=== PATIENT | male | born 1950 | race Caucasian/White ===

== ENCOUNTER 2016-07-30 09:16 | Emergency (ER) | payer BC ==
[2016-07-30 09:43] VITALS: BP 125/79
--- NOTE | 2016-07-30 10:26 | UC ---
Respiratory Complaint HPI - HPI Summary HPI Summary: 1 week of cough and sinus congestion. " made me come in." No fever. No vomiting or diarrhea. Harsh, wheezy cough especially when flat in bed. Helped by OTC meds. Clear sinus drainage and congestion. No ST or earache. - History of Current Complaint Chief Complaint: UCRespiratory Stated Complaint: CONGESTION Time Seen by Provider: 07/30/16 10:11 Hx Obtained From: Patient Onset/Duration: Gradual Onset, Lasting Weeks - 1 Severity Initially: Mild Severity Currently: Mild Character: Cough: Productive Aggravating Factors: Deep Breaths, Recumbent Position Alleviating Factors: OTC Meds Associated Signs And Symptoms: Positive: Chills, Wheezing - with cough, URI. Negative: Fever, Pleuritic Chest Pain, Hemoptysis, Dizziness - Risk Factors Pulmonary Embolism Risk Factors: Negative Cardiac Risk Factors: Negative Pseudomonas Risk Factors: Negative Tuberculosis Risk Factors: Negative - Allergies/Home Medications Allergies/Adverse Reactions: Allergies Allergy/AdvReac Type Severity Reaction Status Date / Time No Known Allergies Allergy Verified 07/30/16 09:36 Home Medications: Home Medications Lisinopril TAB* [Prinivil TAB*] 10 mg PO DAILY 07/30/16 [History Confirmed 07/30] Multiple Vitamin [Multivitamins] 1 cap PO DAILY 07/30/16 [History Confirmed ] Simvastatin TAB(NF) [Zocor(NF)] 10 mg PO DAILY 07/30/16 [History Confirmed 07/30] PMH/Surg Hx/FS Hx/Imm Hx Cardiovascular History Of: Reports: Hypertension - Surgical History Surgical History: Yes Surgery Procedure, Year, and Place: L TKA. hernia - Family History Known Family History: Positive: Hypertension - Social History Occupation: Employed Full-time - overhauler bus truck Lives: With Family Alcohol Use: None Substance Use Type: None Smoking Status (MU): Former Smoker When Did the Patient Quit Smoking/Using Tobacco: 25 years ago - Immunization History Most Recent Influenza Vaccination: 2017 Review of Systems Constitutional: Negative Skin: Negative Eyes: Negative ENT: Nasal Discharge Respiratory: Cough Cardiovascular: Negative Gastrointestinal: Negative Genitourinary: Negative Motor: Negative Neurovascular: Negative Musculoskeletal: Negative Neurological: Negative Psychological: Negative All Other Systems Reviewed And Are Negative: Yes Physical Exam Triage Information Reviewed: Yes Appearance: Well-Appearing, No Pain Distress, Well-Nourished Vital Signs: Initial Vital Signs Temp 97.2 F 07/30/16 09:37 Pulse 69 07/30/16 09:37 Resp 20 07/30/16 09:37 BP 125/79 07/30/16 09:37 Pulse Ox 96 07/30/16 09:37 Vital Signs Reviewed: Yes Eye Exam: Normal Eyes: Positive: Conjunctiva Clear ENT: Positive: Hearing grossly normal, Pharynx normal, Nasal congestion, Nasal drainage, TMs normal. Negative: Tonsillar swelling, Tonsillar exudate, Trismus , Muffled/hoarse voice Neck exam: Normal Neck: Positive: Supple Respiratory Exam: Normal Respiratory: Positive: Lungs clear, Normal breath sounds, No respiratory distress, No accessory muscle use Cardiovascular Exam: Normal Abdomen Description: Positive: Soft. Negative: CVA Tenderness (R), CVA Tenderness (L), Distended, Guarding Musculoskeletal Exam: Normal Neurological Exam: Normal Psychological Exam: Normal Skin Exam: Normal UC Diagnostic Evaluation - Laboratory O2 Sat by Pulse Oximetry: 96 Respiratory Course/Dx - Differential Dx/Diagnosis Differential Diagnosis/HQI/PQRI: Lower Resp Infection, Sinusitis Provider Diagnoses: URI Discharge - Discharge Plan Condition: Stable Disposition: HOME Prescriptions: Albuterol HFA INHALER* [Ventolin HFA Inhaler*] 1 - 2 puff INH Q4H PRN #1 mdi PRN Reason: cough, wheezing Azithromycin TAB* [Zithromax TAB (Z-GABRIELE) 250 mg #6 tabs] 2 tab PO .TODAY, THEN 1 DAILY #1 gabriele Patient Education Materials: Upper Respiratory Infection (ED) Referrals: Shayy HARRISON,Kena Alfaro [Primary Care Provider] -
== END 2016-07-30 10:28 | disposition home or self-care (01) ==
LOC: UCCORT 09:16
DX: J06.9 Acute upper respiratory infection, unspecified (principal); Z87.891 Personal history of nicotine dependence
CPT/HCPCS: 99212; G0463

== ENCOUNTER 2017-03-31 16:21 | Emergency (ER) | payer BC ==
[2017-03-31 16:42] VITALS: BP 130/72
--- NOTE | 2017-03-31 18:11 | UC ---
Skin Complaint HPI - HPI Summary HPI Summary: 66 yo male with painless pea sized boil left axilla x 3 days slowly growing no overlying redness no f/c no Hx MRSA - History of Current Complaint Chief Complaint: UCSkin Time Seen by Provider: 03/31/17 17:38 Stated Complaint: LEFT UNDERARM BOIL Hx Obtained From: Patient Onset/Duration: Gradual Onset, Lasting Days Timing: Constant Onset Severity: Mild Current Severity: Mild Pain Intensity: 0 - hurts if he squeezes it Pain Scale Used: 0-10 Numeric Location: Other - left axilla Character: Redness, Raised, Painful Aggravating: Touch Alleviating: Nothing Associated Signs & Symptoms: Positive: Tenderness - Allergy/Home Medications Allergies/Adverse Reactions: Allergies Allergy/AdvReac Type Severity Reaction Status Date / Time No Known Allergies Allergy Verified 03/31/17 16:38 Review of Systems Constitutional: Negative Skin: Negative Eyes: Negative ENT: Negative Respiratory: Negative Cardiovascular: Negative Gastrointestinal: Negative Genitourinary: Negative Motor: Negative Neurovascular: Negative Musculoskeletal: Negative Neurological: Negative Psychological: Negative Is Patient Immunocompromised?: No All Other Systems Reviewed And Are Negative: Yes PMH/Surg Hx/FS Hx/Imm Hx Previously Healthy: Yes - Surgical History Surgical History: Yes Surgery Procedure, Year, and Place: L TKA. hernia repair - Family History Known Family History: Positive: Hypertension - Social History Alcohol Use: None Substance Use Type: None Smoking Status (MU): Former Smoker When Did the Patient Quit Smoking/Using Tobacco: 25 years ago - Immunization History Most Recent Influenza Vaccination: 2017 Physical Exam Triage Information Reviewed: Yes Appearance: Well-Appearing, No Pain Distress, Well-Nourished Vital Signs: Initial Vital Signs Temp 98.2 F 03/31/17 16:39 Pulse 66 03/31/17 16:39 Resp 16 03/31/17 16:39 BP 130/72 03/31/17 16:39 Pulse Ox 97 03/31/17 16:39 Vital Signs Reviewed: Yes Eyes: Positive: Conjunctiva Clear ENT: Positive: Hearing grossly normal. Negative: Nasal congestion, Nasal drainage, Trismus, Muffled/hoarse voice Neck: Positive: Supple, Nontender Respiratory: Positive: Lungs clear, Normal breath sounds, No respiratory distress, No accessory muscle use Cardiovascular: Positive: RRR, No Murmur Musculoskeletal: Positive: ROM Intact, No Edema Neurological: Positive: Alert Psychological Exam: Normal Skin Exam: Other - pea sized boil left axilla Course/Dx - Diagnoses Provider Diagnoses: left axillary boil (small). no overlying cellulitis Discharge - Discharge Plan Condition: Stable Disposition: HOME Prescriptions: Sulfamethox/Trimethoprim DS* [Bactrim DS 800/160 TAB*] 1 tab PO BID #14 tab Patient Education Materials: Abscess (ED) Referrals: Shayy HARRISON,Kena Alfaro [Primary Care Provider] - If Needed Additional Instructions: I suspect this will resolve with oral antibiotics recheck for worsening symptom recheck if not better in about 4 days warm/soapy compresses for 5-10 minutes 4x day until better
== END 2017-03-31 18:09 | disposition home or self-care (01) ==
LOC: UCCORT 16:21
DX: L02.422 Furuncle of left axilla (principal); Z87.891 Personal history of nicotine dependence
CPT/HCPCS: 99212; G0463

== ENCOUNTER 2018-11-15 16:42 | Emergency (ER) | payer BC ==
[2018-11-15 17:14] VITALS: BP 130/70
--- NOTE | 2018-11-15 17:33 | ED ---
Throat Pain/Nasal Congestion - HPI Summary HPI Summary: 68 yr old male with the complaint of painful lump in the left pre auricular area. ONset three days ago. At first the area was painful to touch and then he developed swelling. The swelling is down today. He has pain that is moderate. Denies fever or chills. He has no other complaints. - History of Current Complaint Chief Complaint: UCSkin Time Seen by Provider: 11/15/18 17:25 - Allergies/Home Medications Allergies/Adverse Reactions: Allergies Allergy/AdvReac Type Severity Reaction Status Date / Time No Known Allergies Allergy Verified 11/15/18 17:15 Home Medications: Home Medications Sitagliptin Phosphate [Januvia] 25 mg PO 11/15/18 [History] PMH/Surg Hx/FS Hx/Imm Hx Endocrine/Hematology History: Reports: Hx Diabetes Cardiovascular History: Reports: Hx Hypertension Denies: Hx Pacemaker/ICD History: Denies: Hx Renal Disease Sensory History: Denies: Hx Hearing Aid Psychiatric History: Denies: Hx Panic Disorder - Surgical History Surgery Procedure, Year, and Place: L TKA. hernia repair Infectious Disease History: No Infectious Disease History: Denies: Traveled Outside the [place] in Last 30 Days - Family History Known Family History: Positive: Hypertension - Social History Alcohol Use: None Substance Use Type: Reports: None Smoking Status (MU): Former Smoker Review of Systems Constitutional: Negative Positive: Other - swelling pain in left pre auricular area All Other Systems Reviewed And Are Negative: Yes Physical Exam Triage Information Reviewed: Yes Vital Signs On Initial Exam: Initial Vitals Temp Pulse Resp BP Pulse Ox 97.7 F 69 16 130/70 96 11/15/18 17:08 11/15/18 17:08 11/15/18 17:08 11/15/18 17:08 11/15/18 17:08 Vital Signs Reviewed: Yes Appearance: Positive: Well-Appearing, No Pain Distress Skin: Positive: Warm, Skin Color Reflects Adequate Perfusion Head/Face: Positive: Normal Head/Face Inspection Eyes: Positive: EOMI, LILLIE ENT: Positive: Pharynx normal, TMs normal, Other - left pre auricular area with enlarged lymph node on palpation with tenderness. Neck: Positive: Supple, Nontender, No Lymphadenopathy Respiratory/Lung Sounds: Positive: Clear to Auscultation, Breath Sounds Present Cardiovascular: Positive: RRR. Negative: Murmur, Rub Abdomen Description: Negative: Distended Musculoskeletal: Positive: Strength/ROM Intact Neurological: Positive: Sensory/Motor Intact, Alert, Oriented to Person Place, Time, CN Intact II-III Psychiatric: Positive: Normal Diagnostics - Vital Signs Vital Signs Temp Pulse Resp BP Pulse Ox 11/15/18 17:08 97.7 F 69 16 130/70 96 - Laboratory Lab Statement: Any lab studies that have been ordered have been reviewed, and results considered in the medical decision making process. EENT Course/Dx - Course Course Of Treatment: 68 yr old with lymphangitis localized to the left pre auricular area. Start on Doxy, and he will see his PMD in two days for follow up. - Diagnoses Provider Diagnoses: Lymphangitis Discharge - Sign-Out/Discharge Documenting (check all that apply): Patient Departure All imaging exams completed and their final reports reviewed: No Studies - Discharge Plan Condition: Good Disposition: HOME Prescriptions: Doxycycline Monohydrate 100 mg PO BID #20 capsule Patient Education Materials: Lymphangitis (ED) Referrals: Shayy HARRISON,Kena Alfaro [Primary Care Provider] - 2 Days - Billing Disposition and Condition Condition: GOOD Disposition: Home
== END 2018-11-15 17:38 | disposition home or self-care (01) ==
LOC: UCCORT 16:42
DX: I89.1 Lymphangitis (principal); E11.9 Type 2 diabetes mellitus without complications; I10 Essential (primary) hypertension; Z87.891 Personal history of nicotine dependence
CPT/HCPCS: 99212; G0463